=== PATIENT | male | born 1955 | race Caucasian/White ===

== ENCOUNTER 2018-04-22 05:16 | Inpatient (IN) ==
[2018-04-22] MEDS ORDERED: Chlorhexidine 4% Topical 120 APPLIC/120 ML Bottle TOPICAL SCH (05:45)
[2018-04-22] MEDS ORDERED: Chlorhexidine Gluconate 2% 1 Pack (2 Cloths) TOPICAL ONE (05:47)
[2018-04-22] MEDS ORDERED: Metoprolol Tartrate 25 MG Tablet PO ONE (05:47)
[2018-04-22] MEDS ORDERED: ceFAZolin 2 GM Premix Inj 2 GM/100 ML BAG IV.SIG SCH (06:00)
[2018-04-22] MEDS ORDERED: Sodium Chlor 0.9% Inj 500 ML IV.SIG SCH (06:00)
[2018-04-22] MEDS ORDERED: Propofol Inj 500 MG/50 ML Vial ONE (06:11)
[2018-04-22] MEDS ORDERED: Bupivacaine/Dextrose 0.75% Inj 2 ML Ampul ONE (06:11)
[2018-04-22] MEDS ORDERED: Bupivacaine Liposomal PF 1.3% Inj 20 ML Vial ONE (06:31)
[2018-04-22] MEDS ORDERED: Post-op Orders (for Pharmacy) OTHER STA (06:45)
[2018-04-22] MEDS ORDERED: Morphine Inj 4 MG/ML Vial IV.PUSH PRN (06:45)
[2018-04-22] MEDS ORDERED: Tranexamic Acid Inj 0 MG in Sodium Chlor 0.9% Inj 100 ML IV.SIG ONE (06:45)
[2018-04-22] MEDS ORDERED: Acetaminophen 325 MG Tablet PO PRN (06:45)
[2018-04-22] MEDS ORDERED: Bisacodyl 10 MG Supp RECTAL PRN (06:45)
[2018-04-22] MEDS ORDERED: Aluminum/Magnesium/Simethacone Susp 30 ML UDC PO PRN (06:45)
--- NOTE | 2018-04-22 06:49 | P.DCO ---
- Physical Therapy Physical Therapy: Gait training Knee: Total knee, Protocol: Right, Gait training, Full weight bearing Right Lower Extremity Weight Bearing: Weight bearing as tolerated Right Lower Extremity Range of Motion: Active ROM (Active, active assisted and passive range of motion. Range of motion goal is 0 extension to 135 of flexion.) - Nursing Nursing: Dressing changes Dressing changes: Daily dressing change, Coverderm/Primapore Additional instructions: Do not remove Dermabond Prineo. - Certification Need for Home Health services: I have seen patient Jt Reid on 04/22/18. My clinical findings support the need for the requested home health care services because: Need for Home Health Services: Limited mobility due to disease progression, Limited ability to care for self, High risk of falls Homebound Certification: I certify that my clinical findings support that this patient is homebound because: Homebound Certification: Post-op weakness, Unsteady gait/balance, Unsafe to leave home unassisted
[2018-04-22] MEDS ORDERED: SODIUM CHLOR 0.9% IV.SIG SCH ×2 (07:00→10:00)
[2018-04-22] MEDS ORDERED: Sodium Chlor 0.9% Inj 80 ML, Bupivacaine Liposo PF 1.3% Inj 20 ML P-ARTICULR SCH ×2 (07:00)
[2018-04-22] MEDS ORDERED: TRANEXAMIC ACID IV.SIG SCH ×2 (07:00→10:00)
[2018-04-22] MEDS ORDERED: Neostigmine Inj 5 MG/5 ML Syringe IV.PUSH ONE (07:27)
[2018-04-22] MEDS ORDERED: Lidocaine PF 1% Inj 5 ML Syringe INFILTRATN ONE (07:27)
[2018-04-22] MEDS ORDERED: Phenylephrine/NS 1000 MCG/10ML Syringe IV.PUSH ONE (07:27)
[2018-04-22] MEDS ORDERED: Glycopyrrolate Inj 1 MG/5 ML Syringe IV.PUSH ONE (07:27)
--- NOTE | 2018-04-22 09:17 | P.OP ---
- Preoperative Diagnosis (1) Primary osteoarthritis of right knee - Postoperative Diagnosis (1) Primary osteoarthritis of right knee Date of procedure: 04/22/18 Procedure: Right total knee arthroplasty using [employer] Triathlon prosthesis (uncemented). Anesthesia: GETA, regional (Adductor canal block), local (Exparel) Surgeon: Yifan Franklin MD Rv Technician: JAUN Mcintyre Estimated blood loss (mL): 200 Pathology: none sent Operation and Findings: Indications and Findings: This 62-year-old man has a 5-6 year history of right knee pain that has progressively worsened with progressive varus deformity. He is ambulation tolerance has gone to 1 mile with there being difficulty with ascending and descending stairs, walking on uneven ground and pain in the leg. He has been treated by other physicians with analgesics, nonsteroidal anti- inflammatory agents, activity modification, intra-articular corticosteroids, ambulatory aids and exercises. This has not improved his condition. Physical findings showed genu varum with medial laxity, patellofemoral and medial crepitation, palpable osteophytes. Imaging studies showed significant loss of articular cartilage to [id number] in the medial compartment with osteophytes and subchondral sclerosis. There is also patellofemoral compartment arthritis and lateral compartment arthritis. Operative findings: There is medial compartment osteoarthritis with loss of articular cartilage to [id number] with subchondral sclerosis and medial osteophytes. There are also patellofemoral osteophytes with loss of articular cartilage to [id number] and subchondral sclerosis. The lateral compartment had degeneration as well. The prosthesis used was a [employer] Triathlon prosthesis. The femur was a size 5, uncemented modular, cruciate retaining. The tibial baseplate was a size 6 Tritanium with a 9 mm cruciate retaining X3 polyethylene spacer. The patella was a size 35 mm asymmetric uncemented. The patient was brought to the clean-air operating suite after administration of a regional anesthetic by adductor canal block. A spinal anesthetic was administered. The position was supine with a small bolster under the hip on the operative side. A pneumatic tourniquet was applied to the upper thigh. The lower extremity was prepped with alcohol, Hibiclens and ChloraPrep and draped in the usual manner with the knee draped free. An appropriate timeout procedure was carried out. An incision was made from about 3 fingerbreadths above the superior medial pole of patella down the tibial tubercle on the medial side. The incision was deepened through the subcutaneous tissue to the retinacular structures which were exposed medially and laterally. A medial retinacular incision was made from the superior medial pole of patella down the tibial tubercle and up into the quadriceps tendon, splitting it longitudinally in the medial one third. The patella was reflected. The infrapatellar fat pad was debulked. The anterior cruciate ligament was excised. Medial and lateral meniscectomies were initiated. Fenestrations were made in the distal femur and proximal tibia for intramedullary referencing guides. The distal femoral cutting guide and jig were assembled for a 5, 8 mm cut. When this was fit into position,the cutting block was stabilized with pins. The jig was removed. The distal femoral cut was completed with the oscillating saw. The sizing guide was positioned in place along Whitesides line and the epicondylar axis and stabilized with pins. The femoral size was determined as noted above. The 4-in-1 cutting block was positioned in place. Anterior and posterior cuts were made followed by posterior and anterior chamfer cuts taking care to prevent injury to ligamentous structures. Osteophytes were trimmed from the distal femur. A bone plug was placed into the fenestration of the distal femur. The proximal tibia was exposed. The medial and lateral meniscectomies were completed. The proximal tibial cutting guide was positioned in place and stabilized with a pin for rotation. The depth of cut was verified with a stylus off the high side. The cutting block was stabilized with pins. The jig was removed. The depth of cut was verified and adjusted appropriately with the use of the spacer block. The proximal tibial cut was made with the oscillating saw taking care to prevent injury to neurovascular and ligamentous structures. Proximal tibial bone was removed. Local anesthetic was administered with Exparel in the posterior capsule. The tibial baseplate trial was positioned in place. After verifying the appropriate size, the base plate trial was positioned in place along with its spacer. The femoral component was impacted into place. The alignment was checked. The tibial baseplate was pinned in place on the tibia. Attention was directed to the patella. The patella drill guide was positioned in place for the appropriate sized patella. Patellar drilling was then carried out. The trial patella was positioned in place. The knee was taken through a range of motion which was easily 0 extension to 145. The patella trial was removed. The femoral drill holes were made. The femoral trials were removed. The tibial spacer was removed. A bone plug was placed into the proximal tibia. The tibial punch was impacted through the proximal tibial punch guide. This was all removed followed by placement of the tibial drill guide. The tibial drill holes were made. The guide was removed. The cut ends of bone were cleaned with pulse lavage. The tibial baseplate was impacted into place and seated appropriately. The spacer was inserted. The the femoral component was impacted into place and seated appropriately. The patella component was seated with the patellar vice and tightened appropriately. The knee was taken through a range of motion which was comparable to the previous range of motion with excellent stability in flexion and extension and appropriate patellofemoral tracking. The remainder of the Exparel was injected throughout the knee as a local anesthetic. Drains were brought out the superior lateral aspect of the suprapatellar pouch. Wound closure commenced using 0 Vicryl interrupted [id number] sutures for the capsular and fascial structures, 2-0 Vicryl interrupted simple sutures with buried knots for the subcutaneous tissues and 4-0 Monocryl, continuous subcuticular closure for the skin. The wound was dressed with Dermabond Prineo followed by a dry sterile dressing. Sterile soft roll with a cooling pad and Alejandro bandage from the base of the toes to mid thigh were applied. Patient was transferred from the operating room to the recovery room in satisfactory condition having tolerated procedure well. Counts were correct. Specimens: None. Estimated blood loss: 200 mL
[2018-04-22] MEDS ORDERED: fentaNYL Citrate Inj 100 MCG/2 ML Ampul ONE (09:39)
[2018-04-22] MEDS: Fenofibrate 145 MG Tablet PO SCH (10:10)
[2018-04-22] MEDS: Senna/Docusate Sodium 8.6/50 MG Tablet PO SCH ×2 (10:10→20:55)
--- NOTE | 2018-04-22 10:12 | XR ---
EXAM DATE: 04/22/2018 9:57 AM EDT AGE/SEX: 62 years / Male INDICATIONS: Post op right knee surgery. CLINICAL DATA: This is the patient's initial encounter. Patient reports that signs and symptoms have been present for 1 day and indicates a pain score of Nonresponsive. MEDICAL/SURGICAL HISTORY: None. None. COMPARISON: No prior exams available for comparison. FINDINGS: There is a knee prosthesis in place. There is good position alignment of the prosthesis with the bony structures. Postsurgical changes are noted. CONCLUSION: Good position and alignment on this postoperative study. Electronically signed by: Adolfo Parrish MD 04/22/2018 10:11 AM EDT
[2018-04-22] MEDS: Multivitamin Hematinic Therapeutic Tablet PO SCH (10:14)
[2018-04-22] MEDS: Ketorolac Inj 30 MG/ML (IVP) Vial IV.PUSH SCH ×3 (10:24→20:55)
--- NOTE | 2018-04-22 15:16 | P.CON ---
History of Present Illness Service: Medicine Consult date: 04/22/18 Requesting Physician: Yifan Franklin Reason for Consult: medicine management Primary Care Provider: UNKNOWN Chief Complaint: medical managment History of Present Illness: This is a 62-year-old male past medical history of GERD, dyslipidemia, and severe right OA who presented for elective surgery for right total knee arthroplasty done today 04/22/[address] Yifan Franklin. [facility] consulted for medical management. Patient seen after surgery and was transferred from the PACU. Patient stated that he try to get up today and he felt very lightheadedness so had to sit back down. He also stated that if he turns his head quickly he becomes dizzy. Patient also feels nauseous and was just given Zofran. Otherwise he denies any pain. His is at the bedside during the interview. Review of Systems Constitutional: Denies anorexia, Denies body ache(s), Denies chills, Denies daytime sleepiness, Denies excessive sweating, Denies fatigue, Denies fever(s), Denies headache(s), Denies increased appetite, Denies lack of energy, Denies malaise, Denies night sweats, Denies weakness, Denies weight gain, Denies weight loss, Denies other Eyes: Denies blind spots, Denies blurry vision, Denies bulging eyes, Denies change in vision, Denies double vision, Denies discharge, Denies dry eyes, Denies floaters, Denies irritation, Denies itchy eyes, Denies loss of vision, Denies pain, Denies requires corrective lenses, Denies sensitivity to light, Denies other Ears, Nose, Mouth, and Throat: Denies abnormal hearing, Denies bleeding gums, Denies bad breath, Denies change in voice, Denies dental pain, Denies difficulty swallowing, Denies dizziness, Denies dry mouth, Denies ear discharge , Denies ear pain, Denies facial pain, Denies headache(s), Denies hearing loss, Denies hoarseness, Denies lip swelling, Denies nosebleed, Denies mouth lesions, Denies mouth pain, Denies nasal congestion, Denies nasal discharge, Denies nasal obstruction, Denies nasal trauma, Denies neck lump, Denies neck pain, Denies nose pain, Denies pain with swallowing, Denies poor balance, Denies post nasal drip, Denies ringing in the ears, Denies sinus pain, Denies sinus pressure , Denies sore throat, Denies throat swelling, Denies tongue swelling, Denies other Cardiovascular: Reports lightheadedness, Denies chest pain, Denies chest pain at rest, Denies chest pain with activity, Denies excessive sweating, Denies fainting, Denies fast heart rate, Denies foot swelling, Denies generalized swelling, Denies irregular heart rhythm, Denies leg pain with activity, Denies leg sores, Denies leg swelling, Denies radiating jaw, neck or arm pain, Denies rapid, pounding, or irregular heartbeat, Denies shortness of breath, Denies shortness of breath with activity, Denies shortness of breath when lying down, Denies shortness of breath causing sudden awakening, Denies slow heart rate, Denies other Respiratory: Denies change in phlegm color, Denies chest congestion, Denies cough, Denies coughing up blood, Denies excessive phlegm production, Denies pain on inspiration, Denies pain with cough, Denies shortness of breath, Denies shortness of breath with activity, Denies snoring, Denies stridor, Denies wheezing, Denies other Gastrointestinal: Reports nausea, Denies abdominal pain, Denies belching, Denies black, tarry stools, Denies bloating, Denies bright, red blood in stools , Denies change in bowel habits, Denies constant urge to pass stool, Denies change in stools, Denies coffee ground vomit, Denies constipation, Denies cramping, Denies difficulty swallowing, Denies excessive passing of gas, Denies feeling full early, Denies heartburn, Denies incontinent of stools, Denies loose stools, Denies pain with swallowing, Denies vomiting, Denies vomiting blood, Denies other Genitourinary: Denies blood in semen, Denies blood in urine, Denies decreased urination, Denies difficulty urinating, Denies difficulty with ejaculations, Denies erectile dysfunction, Denies genital lesions, Denies genital pain, Denies painful urination, Denies side pain, Denies frequent nighttime urination , Denies painful ejaculations, Denies penile discharge, Denies scrotal swelling , Denies testicle lump, Denies testicle pain, Denies urinary frequency, Denies urinary hesitancy, Denies urinary incontinence, Denies urinary urgency, Denies other Musculoskeletal: Reports joint pain, Denies abnormal walking, Denies back pain, Denies body aches, Denies decreased muscle mass, Denies deformity, Denies joint swelling, Denies limited joint movement, Denies loss of height, Denies muscle cramps, Denies muscle weakness, Denies neck pain, Denies numbness, Denies radiating pain into limb, Denies stiffness, Denies tingling, Denies other Skin/Breast: Denies acne, Denies bleeding lesions, Denies boil, Denies breast swelling, Denies breast skin changes, Denies breast pain, Denies breast lump, Denies change in breast shape, Denies change in hair, Denies change in skin color, Denies changing lesions, Denies dry skin, Denies excessive hair growth, Denies hair loss, Denies itching, Denies lesions, Denies nail changes, Denies new lesions, Denies nipple discharge, Denies non-healing lesions, Denies redness , Denies sensitivity to light, Denies rash, Denies skin pain, Denies skin ulcer , Denies sores, Denies stretch tidwell, Denies unusual bruising, Denies wounds, Denies yellowing of the skin, Denies other Neurologic: Reports dizziness, Denies abnormal hearing, Denies abnormal movements, Denies abnormal speech, Denies abnormal walking, Denies behavioral changes, Denies burning sensations, Denies confusion, Denies fainting, Denies frequent falls, Denies headache(s), Denies lack of coordination, Denies localized weakness, Denies loss of vision, Denies memory loss, Denies numbness, Denies other visual disturbances, Denies radiating pain, Denies restless legs, Denies convulsions, Denies seizure-like activity, Denies sensory deficit, Denies tingling, Denies tingling/numbness/burning sensations, Denies tremor(s), Denies unsteadiness, Denies weakness, Denies other Psychiatric: Denies abnormal sleep pattern, Denies anxiety, Denies behavioral changes, Denies change in appetite, Denies change in sex drive, Denies confusion , Denies depression, Denies difficulty concentrating, Denies hearing things others do not hear, Denies hopelessness, Denies irritability, Denies lack of enjoyment, Denies memory loss, Denies mood swings, Denies panic attacks, Denies paranoia, Denies seeing things others do not see, Denies sensing things others do not sense, Denies tactile hallucinations, Denies thoughts of hurting/killing others, Denies thoughts of hurting/killing yourself, Denies other Endocrine: Denies cold intolerance, Denies excessive sweating, Denies flushing, Denies heat intolerance, Denies increased hunger, Denies increased thirst, Denies increased urination, Denies rapid, pounding, or irregular heartbeat, Denies other Hematologic/Lymphatic: Denies easy bleeding, Denies easy bruising, Denies enlarged lymph nodes, Denies other Allergic/Immunologic: Denies GI upset with certain foods, Denies hives, Denies itchy eyes, Denies lip swelling, Denies seasonal runny nose, Denies throat swelling, Denies tongue swelling, Denies wheezing, Denies other PMFSH - History History Provided By: Patient - Medical / Surgical Hx Neg / Unobtainable Medical Problems Denied: Yes - Medical History Medical History: Medical History (Last Reviewed 04/22/18 @ 15:20 by Virginia Freeman MD) Arthritis GERD (gastroesophageal reflux disease) High cholesterol Joint pain Wears glasses Wears partial dentures - Surgical History Surgical History: Surgical History (Last Reviewed 04/22/18 @ 08:30 by Christopher Gracia) History of cataract extraction with lens replacement - Family History Family History: Family History (Last Updated 04/22/18 @ 15:20 by Virginia Freeman MD) Mother Family history of diabetes mellitus - Tobacco History Second Hand Smoke Exposure: No Smoking Status: Former smoker - Alcohol History How Often Do You Have a Drink Containing Alcohol: Never - Substance Use History Substance History: No History of Abuse - Travel History Recent Travel in the [place] Within the Last 8 Weeks: No Recent Travel Out of the Country Within the Last 8 Weeks: No - Immunization History Tetanus Immunization: Unsure Hx Influenza Vaccine This Season: No Medications and Allergies Active Medications: Active Medications Acetaminophen (Tylenol) 650 mg PO Q6H PRN PRN Reason: Pain Less Than 3 On Scale Hydrocodone Bitart/Acetaminophen ([place] 7.5/325) 1 tab PO Q4H PRN PRN Reason: PAIN SCALE 4 TO 6 MODERATE Hydrocodone Bitart/Acetaminophen ([place] 7.5/325) 2 tab PO Q6H PRN PRN Reason: PAIN SCALE 7 TO 10 SEVERE Al Hydrox/Mg Hydrox/Simethicone (Mag-Al Plus Susp Liq) 30 ml PO Q6H PRN PRN Reason: INDIGESTION Al Hydroxide/Mg Hydroxide (Milk Of Magnesia Liq) 30 ml PO BID PRN PRN Reason: Mild Constipation Aspirin (Aspirin Chew) 81 mg PO BID [facility] Last Admin: 04/22/18 10:10 Dose: Not Given Bisacodyl (Dulcolax Supp) 10 mg RECTAL DAILY PRN PRN Reason: SEVERE CONSITIPATION Chlorhexidine Gluconate (Hibiclens 4% Topical) 1 applicatio TOPICAL ONCE [facility] Stop: 04/26/18 05:44 Diphenhydramine HCl (Benadryl) 25 mg PO Q6H PRN PRN Reason: ITCHING Fenofibrate (Tricor) 145 mg PO DAILY [facility] Last Admin: 04/22/18 10:10 Dose: Not Given Tranexamic Acid 786 mg/ Sodium (Chloride) 107.86 mls @ 200 mls/hr IV.SIG ONCE [facility] Stop: 04/22/18 16:00 Last Admin: 04/22/18 10:05 Dose: 200 mls/hr Lactated Ringer's (Lr 1000 Ml Inj) 1,000 mls @ 30 mls/hr IV.SIG .Q24H [facility] Stop: 04/23/18 05:59 Last Admin: 04/22/18 06:30 Dose: 30 mls/hr Sodium Chloride (Ns Inj) 500 mls @ 30 mls/hr IV.SIG .Q10H [facility] Last Admin: 04/22/18 06:42 Dose: Not Given Cefazolin Sodium 1,000 mg/ (Sodium Chloride) 100 mls @ 200 mls/hr IV.SIG Q6H [facility] Stop: 04/23/18 01:29 Last Admin: 04/22/18 13:00 Dose: 200 mls/hr Lactated Ringer's (Lr 1000 Ml Inj) 1,000 mls @ 80 mls/hr IV.CONT .[id number] [facility] Last Admin: 04/22/18 10:04 Dose: 80 mls/hr Iron/Minerals/Multivitamins (Theragran Hematinic) 1 tab PO DAILY [facility] Last Admin: 04/22/18 10:14 Dose: Not Given Ketorolac Tromethamine (Toradol Inj) 15 mg IV.PUSH Q6H [facility] Stop: 04/24/18 03:01 Last Admin: 04/22/18 10:24 Dose: 15 mg Lactulose (Lactulose Liq) 30 ml PO DAILY PRN PRN Reason: SEVERE CONSITIPATION Miscellaneous Information [place] [place] [facility] [place] 1 each OTHER UNSCH PRN PRN Reason: SEE LABEL COMMENTS Stop: 04/23/18 09:35 Morphine Sulfate (Morphine Inj) 2 mg IV.PUSH Q3H PRN PRN Reason: BREAKTHROUGH PAIN Ondansetron HCl (Zofran Odt) 4 mg PO Q6H PRN PRN Reason: NAUSEA OR VOMITING Last Admin: 04/22/18 13:43 Dose: 4 mg Pantoprazole Sodium (Protonix) 41 mg PO DAILY [facility] Last Admin: 04/22/18 10:10 Dose: Not Given Senna/Docusate Sodium (Savita-Colace) 1 tab PO BID [facility] Last Admin: 04/22/18 10:10 Dose: Not Given Sennosides (Senokot) 17.2 mg PO BID PRN PRN Reason: Moderate Constipation Sodium Chloride (Ns Flush) 2 ml IV.FLUSH PRN PRN PRN Reason: FLUSH AFTER USING IV ACCESS Sodium Chloride (Ns Flush) 2 ml IV.FLUSH BID [facility] Last Admin: 04/22/18 10:14 Dose: 2 ml Vitamin D (Vitamin D3) 2,000 unit PO DAILY [facility] Last Admin: 04/22/18 10:14 Dose: Not Given Zolpidem Tartrate (Ambien) 5 mg PO HS PRN PRN Reason: INSOMNIA Allergies Allergy/AdvReac Type Severity Reaction Status Date / Time No Known Allergies Allergy Verified 04/22/18 06:05 Home Medications Medication Instructions Recorded Confirmed Type cholecalciferol (vitamin D3) 2,000 unit PO DAILY 04/07/18 04/22/18 History [Vitamin D3] esomeprazole magnesium 40 mg PO DAILY 04/07/18 04/22/18 History fenofibrate 160 mg PO DAILY 04/07/18 04/22/18 History jfwrgvke-clli-wtg-folic acid 1 tab PO DAILY 04/07/18 04/22/18 History [Centrum] naproxen sodium [Aleve] 220 mg PO Q6-8H PRN 04/07/18 04/22/18 History acetaminophen [Tylenol] 500 mg PO 04/22/18 History Physical Exam Vital signs: Vital Signs 04/22/18 06:05 04/22/18 06:11 04/22/18 06:45 Temperature 97.7 F Pulse Rate 83 82 Respiratory Rate 20 Blood Pressure 124/89 Pulse Oximetry 96 98 04/22/18 09:34 04/22/18 09:45 04/22/18 10:00 Temperature 98.8 F Pulse Rate 87 84 89 Respiratory Rate 20 15 16 Blood Pressure 124/74 141/81 H 140/86 Pulse Oximetry 94 L 100 99 04/22/18 10:15 04/22/18 10:20 04/22/18 10:26 Temperature 98.6 F Pulse Rate 90 88 Respiratory Rate 14 15 Blood Pressure 115/74 115/69 Pulse Oximetry 95 99 95 04/22/18 11:15 Temperature 97.4 F L Pulse Rate 83 Respiratory Rate 17 Blood Pressure 124/76 Pulse Oximetry 95 Intake & Output 04/21/18 04/22/18 04/22/18 18:59 06:59 18:59 Intake Total 1407.86 / 1407.86 Output Total 215 / 215 Balance 1192.86 / 1192.86 Weight 78.6 kg 78.471 kg Intake: IV 107.86 / 107.86 Cyklokapron Inj 786 MG In NS 107.86 / 107.86 Inj 100 ML @ 200 mls/hr IV.SIG ONCE [facility] Rx#:[id number] Anesthesia Amount 1300 / 1300 Output: Estimated Blood Loss 200 / 200 Wound Drainage Left Knee Hemovac Other: Weight On Admission 78.6 kg - Constitutional no acute distress - Routine HEENT Exam Head: Present: normocephalic, atraumatic Eye: Present: EOMI, PERRL ENT: Present: mucous membranes moist, oropharynx clear, dentition normal - Routine Neck Exam Present: supple, full ROM, trachea midline - Routine Respiratory Exam Present: CTA bilaterally - Routine Cardiovascular Exam Present: RRR, S1, S2 Comments: No rubs murmurs or gallops. - Routine Abdominal Exam Present: soft, normoactive bowel sounds - Routine Skin Exam Present: intact - Routine Neurological Exam Present: alert, oriented X3 Right leg in splint. Negative for any lower extremity edema. +2 DP pulses. - Routine Psychiatric Exam Present: normal affect, normal thought process Assessment and Plan - Plan This is a 62-year-old male past medical history of dyslipidemia, GERD, and right OA who presented with elective surgery with right total knee arthroplasty Severe osteoarthritis -Failed medical management. -Status post total right knee arthroplasty by Dr. Franklin on 04/22/2018. -Management per orthopedic GERD/dyslipidemia -Continue with home medication. Lightheadedness versus dizziness -Most likely this is secondary to post anesthesia. I reviewed his vital signs which is normal. If patient does have vertical can use meclizine as needed. -Discussed case with patient's nurse. Otherwise patient is medically stable for discharge.
[2018-04-22] MEDS ORDERED: Zolpidem Tartrate 5 MG Tablet PO PRN (21:00)
[2018-04-23] MEDS: Ketorolac Inj 30 MG/ML (IVP) Vial IV.PUSH SCH ×2 (02:10→08:22)
[2018-04-23 03:48] LABS: Hematocrit 31.7 % (39.0-51.0); Hemoglobin 11.4 gm/dL (13.0-17.0)
[2018-04-23 06:34] VITALS: TEMP 98.3
--- NOTE | 2018-04-23 07:33 | P.PNOP ---
Subjective Interval history: Postop day #1 He indicates that he had difficulty with ambulation due to vertigo. He also has had some difficulty voiding with some mild urinary retention. He has required straight catheterization twice. He has not been up, however. Physical therapy reports that ambulation was held due to vertigo. The range of motion was 0 extension to 79 of flexion. Physical Exam Vital signs: Vital Signs 04/22/18 09:34 04/22/18 09:45 04/22/18 10:00 Temperature 98.8 F Pulse Rate 87 84 89 Respiratory Rate 20 15 16 Blood Pressure 124/74 141/81 H 140/86 Pulse Oximetry 94 L 100 99 04/22/18 10:15 04/22/18 10:20 04/22/18 10:26 Temperature 98.6 F Pulse Rate 90 88 Respiratory Rate 14 15 Blood Pressure 115/74 115/69 Pulse Oximetry 95 99 95 04/22/18 11:15 04/22/18 16:00 04/22/18 20:00 Temperature 97.4 F L 97.6 F 98.4 F Pulse Rate 83 89 101 H Respiratory Rate 17 18 18 Blood Pressure 124/76 119/74 109/58 L Pulse Oximetry 95 96 94 L 04/23/18 00:00 04/23/18 04:00 Temperature 98.3 F 98.3 F Pulse Rate 98 H 79 Respiratory Rate 17 17 Blood Pressure 114/68 118/65 Pulse Oximetry 95 95 Intake & Output 04/22/18 04/23/18 04/23/18 18:59 06:59 18:59 Intake Total 1767.86 / 1767.86 2703 / 2703 Output Total 215 / 215 1420 / 1420 Balance 1552.86 / 1552.86 1283 / 1283 Weight 78.471 kg Intake: IV 107.86 / 107.86 2703 / 2703 LR 1000 mL Inj 1,000 ML @ 80 2403 / 2403 mls/hr IV.CONT .[id number] TRAM Rx# :[id number] Cyklokapron Inj 786 MG In NS 107.86 / 107.86 Inj 100 ML @ 200 mls/hr IV.SIG ONCE TRAM Rx#:[id number] Ancef Inj 1,000 MG In NS Inj 300 / 300 100 ML @ 200 mls/hr IV.SIG Q6H TRAM Rx#:[id number] Oral 360 / 360 Anesthesia Amount 1300 / 1300 Output: Urine 250 / 250 Estimated Blood Loss 200 / 200 Urine Amount (Catheter) 700 / 700 Straight 700 / 700 Wound Drainage 470 / 470 Left Knee Hemovac 470 / 470 Other: Date of Last Bowel Movement 04/21/18 Narrative: He is resting comfortably, supine in bed. The dressing is dry and intact. The neurovascular status is intact. - Urinary Catheter Management Straight Cath placed during this visit: yes, but has since been removed by the nurse Reason for continuing: Not indwelling catheter Insertion date: 04/22/18 Insertion time: 18:30 Removal date: 04/22/18 Removal time: 18:50 Results - Labs CBC & Chem 7: 04/23/18 03:17 Laboratory Results - last 24 hr 04/22/18 04/23/18 06:32 03:17 Hgb 11.4 L Hct 31.7 L Blood Type Recheck Required Antibody Screen Negative - Imaging Impressions Knee X-Ray 04/22/18 06:44 CONCLUSION: Good position and alignment on this postoperative study. - Procedures Right total knee arthroplasty using [place] Triathlon prosthesis (uncemented) on 04/23/2018. Assessment and Plan - Ortho Post Op Day # 1 - Problem List (1) Status post total right knee replacement not using cement Code(s): Z96.651 - Presence of right artificial knee joint Status: Acute Plan: Continue postop care and PT - Assessment and Plan Condition: Good. Orthopedically stable. DVT prophylaxis: TEDs, aspirin, sequentials. Discharge plans: Home with home health care. An appointment was scheduled through the office. Prescriptions: [place] 7.5/325; Patient is having significant pain caused by a total knee arthroplasty which will last more than 3 days. Trial of Tylenol has not helped. I believe that it is medically necessary to treat patients pain because it is affecting patients ability to participate in postoperative rehabilitation and perform activities of daily living in a comfortable and efficient manner.
--- NOTE | 2018-04-23 08:15 | P.DS ---
Date of admission: 04/22/18 05:16 Primary care physician: UNKNOWN Attending physician on discharge: Yifan Herrera Anticipated date of discharge: 04/23/18 Brief History from admission: This 62-year-old man has had progressive worsening of arthritis in his right knee that has been nonresponsive to conservative measures as detailed in the history and physical examination. This includes nonsteroidal anti-inflammatory agents, analgesics, exercise, activity modification and intra-articular corticosteroids. He has had progressive varus deformity as well. His physical findings showed genu varum, medial laxity, palpable osteophytes with crepitation on motion. He also had an antalgic gait. X-rays showed loss of articular cartilage to [id number] particularly in the medial compartment with subchondral sclerosis and osteophytes. DS: Diagnosis - Discharge Diagnosis (1) Status post total right knee replacement not using cement Status: Acute Diagnosis: Principal (2) Primary osteoarthritis of right knee Status: Chronic Diagnosis: Principal (3) Postoperative urinary retention Status: Acute Diagnosis: Secondary DS: Medications - Discharge Medications Prescriptions: hydrocodone-acetaminophen 1 tab PO Q4H PRN 7 Days #42 tab PRN Reason: Pain, Severe DS: Summary Hospital Course: The patient was admitted as noted above. The above noted operative procedure was carried out that day. Preoperatively prophylactic antibiotics were administered Ancef according to protocol. These were continued postoperatively. The patient also received tranexamic acid to help with hemostasis according to protocol. In the postanesthesia care unit a continuous passive motion device was initiated. Also initiated were mechanical methods of DVT prophylaxis in the form of ISAAC stockings and sequentials. Physical therapy was initiated on the day of surgery. On postoperative day #1 physical therapy continued. The use of the continuous passive motion device continued. DVT prophylaxis with aspirin 81 mg was initiated at this time. The patient continued physical therapy throughout the hospitalization. The distance walked and range of motion improved throughout the hospitalization. He also had some postoperative urinary retention that subsequently abated. The patient was discharged on postoperative day 1 with the disposition being to home with home health care. An appointment for follow-up was made prior to admission. - Time Spent with Patient Total time spent providing and/or coordinating discharge services: Less than 30 minutes - Quality: VTE Deep Vein Thrombosis/Pulmonary Embolism Present on Admission: No Exam Vital signs: Vital Signs 04/22/18 09:34 04/22/18 09:45 04/22/18 10:00 Temperature 98.8 F Pulse Rate 87 84 89 Respiratory Rate 20 15 16 Blood Pressure 124/74 141/81 H 140/86 Pulse Oximetry 94 L 100 99 04/22/18 10:15 04/22/18 10:20 04/22/18 10:26 Temperature 98.6 F Pulse Rate 90 88 Respiratory Rate 14 15 Blood Pressure 115/74 115/69 Pulse Oximetry 95 99 95 04/22/18 11:15 04/22/18 16:00 04/22/18 20:00 Temperature 97.4 F L 97.6 F 98.4 F Pulse Rate 83 89 101 H Respiratory Rate 17 18 18 Blood Pressure 124/76 119/74 109/58 L Pulse Oximetry 95 96 94 L 04/23/18 00:00 04/23/18 04:00 Temperature 98.3 F 98.3 F Pulse Rate 98 H 79 Respiratory Rate 17 17 Blood Pressure 114/68 118/65 Pulse Oximetry 95 95 Intake & Output 04/22/18 04/23/18 04/23/18 18:59 06:59 18:59 Intake Total 1767.86 / 1767.86 2703 / 2703 Output Total 215 / 215 1420 / 1420 Balance 1552.86 / 1552.86 1283 / 1283 Weight 78.471 kg Intake: IV 107.86 / 107.86 2703 / 2703 LR 1000 mL Inj 1,000 ML @ 80 2403 / 2403 mls/hr IV.CONT .[id number] TRAM Rx# :[id number] Cyklokapron Inj 786 MG In NS 107.86 / 107.86 Inj 100 ML @ 200 mls/hr IV.SIG ONCE TARM Rx#:[id number] Ancef Inj 1,000 MG In NS Inj 300 / 300 100 ML @ 200 mls/hr IV.SIG Q6H TRAM Rx#:[id number] Oral 360 / 360 Anesthesia Amount 1300 / 1300 Output: Urine 250 / 250 Estimated Blood Loss 200 / 200 Urine Amount (Catheter) 700 / 700 Straight 700 / 700 Wound Drainage 470 / 470 Left Knee Hemovac 470 / 470 Other: Date of Last Bowel Movement 04/21/18 Narrative: He is resting comfortably, supine in bed. The dressing is dry and intact. The neurovascular status is intact. Results Procedures completed during hospitalization: Right total knee arthroplasty using [place]ath[place] prosthesis (uncemented) on 04/23/2018. Labs on day of discharge: Labs from last 24 hours 04/23/18 03:17 Hgb 11.4 L Hct 31.7 L - Impressions ITS Impressions Knee X-Ray 04/22/18 06:44 CONCLUSION: Good position and alignment on this postoperative study. Discharge Plan - Discharge Disposition Patient Disposition: W/Home Health Service - Discharge Condition Condition: Stable - Discharge Order Discharge Orders: Discharge Order (Routine); Ordered 04/23/18 Ordered By: Yifan Herrera - Discharge Details Anticipated Discharge Date: 04/23/18 - Physicians Team Primary Care Provider: UNKNOWN, Attending Provider: Yifan Herrera Other Providers: Virginia Freeman MD ; [facility] - Rxs /Orders / Referrals /Forms Prescriptions: New aspirin 81 mg Tablet,Chewable 81 mg PO BID RF: 0 hydrocodone-acetaminophen 7.5-325 mg Tablet 1 tab PO Q4H PRN (Reason: Pain, Severe) 7 Days Qty: 42 RF: 0 Continue acetaminophen [Tylenol] 325 mg Tablet 500 mg PO cholecalciferol (vitamin D3) [Vitamin D3] 2,000 unit Tablet 2,000 unit PO DAILY esomeprazole magnesium 40 mg Capsule,Delayed Release(Dr/Ec) 40 mg PO DAILY fenofibrate 160 mg Tablet 160 mg PO DAILY ibyxslen-rjfe-uiu-folic acid [Centrum] 3,500-18-0.4 unit-mg-mg Tablet, Chewable 1 tab PO DAILY naproxen sodium [Aleve] 220 mg Capsule 220 mg PO Q6-8H PRN (Reason: Pain) Referrals: Yifan Herrera MD [Physician] - See Instructions UNKNOWN, [Primary Care Provider] - See Instructions - Discharge Instructions Patient Printed Instructions: Knee Replacement (DC) Additional Instructions: RX'S SENT AT TIME OF DISCHARGE. NO DRIVING WHILE TAKING NARCOTIC PAIN MEDICINE. KEEP YOUR SCHEDULED FOLLOW UP APPOINTMENT WITH DR. HERRERA. IF YOU HAVE ANY QUESTIONS OR CONCERNS, CALL THE ORTHOPEDIC OFFICE. FOLLOW UP WITH YOUR PRIMARY CARE PROVIDER IN 3-4 DAYS. NO HEAVY LIFTING, BENDING OR STRENUOUS ACTIVITY. DO NOT CHANGE DRESSING UNTIL THE HOME HEALTH CARE NURSE ASSESSES YOU FIRST. APPLY ICE NEEDED. - Post Discharge Care Plan Care Plan Goals: Discharge Care Plan Goals for Total Knee Replacement You have undergone knee replacement surgery. Your doctor replaced your painful joint with an artificial joint to relieve pain and restore movement. Here are some goals to help you heal well. Directions to Meet your Goals: 1. Activity & Exercises: * Take pain medicine as directed by your doctor. * Sit in chairs with arms. The arms make it easier for you to stand up or sit down. * Dont sit for more than 30 to 45 minutes at one time. * Nap if you are tired, but dont stay in bed all day. * Sleep with a pillow under your ankle, not your knee. Be sure to change the position of your leg during the night. * Wear the support stockings you were given in the hospital as directed by your surgeon. 2. Prevent Falls/Injury: The carey to successful recovery is movement with walking and exercising your knee as directed by your doctor. * Arrange your household to keep the items you need handy. Keep everything else out of the way. * Remove items that may cause you to fall, such as throw rugs and electrical cords. * Use nonslip bath mats, grab bars, an elevated toilet seat, and a shower chair in your bathroom * Sit on a shower stool or chair when you shower to keep from falling. * Until your balance, flexibility, and strength improve, use a cane, crutches, a walker, handrails, or someone to help you. * Keep your hands free by using a backpack, stevan pack, apron, or pockets to carry things * Walk up and down stairs with support. Try one step at a time. Use the railing if possible. * Dont drive until your doctor says its OK. * Dont drive while you are taking opioid pain medicine. 3. Precautions: * Prevent infection. Any infection will need to be treated immediately. Call your doctor right away if you think you might have an infection. * Tell your dentist that you have an artificial joint and take antibiotics as prescribed before any dental work. * Tell all your healthcare providers about your artificial joint before any medical procedure. * Maintain a healthy weight. Get help to lose any extra pounds. Added body weight puts stress on the knee. * Your medications may include blood-thinning medicine to prevent blood clots or antibiotics to prevent infection-prevent any falls or cuts 4. Incision Care: * Prevent infection by washing your hands often. If an infection occurs, it will need to be treated right away. * Call your doctor right away if you think you may have an infection. Symptoms include a fever or an incision that leaks white, green, or yellow fluid. * Don't soak your incision in water until your doctor says its OK. This means no hot tubs, bathtubs, or swimming pools. * Follow your doctor's instructions for changing the dressing. * Dont rub the incision, or apply creams or lotions to it. * If you notice any redness or drainage around the bandage site, contact your surgeon's office immediately. 5. Follow-Up: Do Not miss your follow-up appointment. Keep up with all your appointments and yearly check ups When to call your doctor: Call your doctor right away if you have: Fever of 100.4F (38C) or higher, or as directed by your doctor Shaking chills Stiffness, or inability to move the knee Increased swelling in your leg Increased redness, tenderness, or swelling in or around the knee incision Drainage from the knee incision Increased knee pain Call 911: Call 911 right away if you have: Chest pain Shortness of breath Any pain or tenderness in your calf
[2018-04-23] MEDS: Fenofibrate 145 MG Tablet PO SCH (08:22)
[2018-04-23] MEDS: Multivitamin Hematinic Therapeutic Tablet PO SCH (08:22)
[2018-04-23] MEDS: Senna/Docusate Sodium 8.6/50 MG Tablet PO SCH (08:23)
[2018-04-23 09:58] VITALS: BP 128/73; PULSE 81; O2SAT 93
[2018-04-23 14:21] VITALS: RESP 14
== END 2018-04-23 14:28 | disposition home health service (06) ==
LOC: HSDI 05:16 → N06 10:34
PROVIDERS: ADMIT Orthopaedic Surgery; ATTEND Orthopaedic Surgery